=== PATIENT | female | born 1995 | race African-American/Black ===

== ENCOUNTER → 2017-09-02 | Emergency (ER) | payer OTHER ==
[~2017-09-02] VITALS: Ht 172.7 cm; Wt 95.3 kg
[~2017-09-02] MED LIST: NORCO 5-325 TA1 EACH PO; PROAIR HFA8.5 GM INH
[2017-09-02 14:49] VITALS: BP 122/80
== END ==
LOC: ER 12:22
DX: S09.90XA Unspecified injury of head, initial encounter (principal); S13.4XXA Sprain of ligaments of cervical spine, initial encounter; S89.91XA Unspecified injury of right lower leg, initial encounter; J45.909 Unspecified asthma, uncomplicated; F17.210 Nicotine dependence, cigarettes, uncomplicated; V49.3XXA Car occupant (driver) (passenger) injured in unspecified nontraffic accident, initial encounter; Y93.89 Activity, other specified; Y92.89 Other specified places as the place of occurrence of the external cause; Y99.8 Other external cause status